=== PATIENT | male | born 1980 | race Two or more races ===

== ENCOUNTER 2023-08-04 18:33 | Emergency (ER) | payer BC ==
[~2023-08-04] VITALS: Ht 167.6 cm; Wt 81.9 kg
[2023-08-05] MEDS ORDERED: FLUORESCEIN SOD OPTH TEST STRIP EACHEYE ONE (03:30)
[2023-08-05] MEDS ORDERED: TETRACAINE HCL 0.5% OPTH(EYE) SOLN 4ML EACHEYE ONE (03:30)
[2023-08-05] MEDS ORDERED: ERYTHROMY OPTH OINT 5mg/gm 1gm or 3.5gm tube OP ONE (05:15)
[2023-08-05] MEDS ORDERED: HYDROcodone-ACET 5/325MG TAB PO ONE (05:15)
[2023-08-05] MEDS ORDERED: TETANUS-DIPTH-ACEL PERTUSSIS 0.5ML SYR Tdap IM ONE (05:15)
[2023-08-05] MEDS ORDERED: OFL50TS OP (05:15)
[2023-08-05] MEDS ORDERED: HYDR-4902 PO (05:16)
[2023-08-05 05:39] VITALS: BP 136/98; PULSE 82; RESP 16; TEMP 98; O2SAT 97
== END 2023-08-05 06:00 | disposition home or self-care (01) ==
LOC: ER 18:33
DX: T15.01XA Foreign body in cornea, right eye, initial encounter (principal); X58.XXXA Exposure to other specified factors, initial encounter; Y93.89 Activity, other specified; Y92.89 Other specified places as the place of occurrence of the external cause; Y99.8 Other external cause status
CPT/HCPCS: 65222; 90471; 90715